=== PATIENT | female | born 1940 | race Caucasian/White ===

== ENCOUNTER → 2017-06-22 16:42 | Outpatient (CLI) | payer MEDICARE, OTHER ==
[2014-12-17 07:58] VITALS: BMI 27.8
[~2017-06-22 16:42] MED LIST: ASPIRIN EC81 MG; CENTRUM SILVER1 TA2 PO; DEXILANT60 MG PO; DILAUDID4 MG PO; DIOVAN160 MG PO; HCTZ25 MG PO; LEVOTHROID50 MCG PO; LOVAZA1 G PO; NEXIUM40 MG PO; VITAMIN B-625 MG
[2017-06-22 18:11] LABS: ANION GAP 16.9 mmol/L (8-16); CALCIUM 8.8 mg/dL (8.5-10.1); CARBON DIOXIDE 22.2 mmol/L (21.0-32.0); CREATININE - SERUM 1.5 mg/dL (0.6-1.3); POTASSIUM - SERUM 5.1 mmol/L (3.5-5.1)
== END | disposition home or self-care (01) ==
LOC: D.LABREF 16:42
PROVIDERS: Internal Medicine Cardiovascular Disease
DX: I10 Essential (primary) hypertension (principal)

== ENCOUNTER → 2017-06-23 09:53 | Outpatient (CLI) | payer MEDICARE, OTHER ==
[2014-12-17 07:58] VITALS: BMI 27.8
== END | disposition home or self-care (01) ==
LOC: D.US 09:53
DX: M79.604 Pain in right leg (principal); M79.605 Pain in left leg

== ENCOUNTER → 2017-11-02 09:36 | Outpatient (CLI) | payer MEDICARE, OTHER ==
[2014-12-17 07:58] VITALS: BMI 27.8
== END | disposition home or self-care (01) ==
LOC: D.US 09:36
DX: I12.9 Hypertensive chronic kidney disease with stage 1 through stage 4 chronic kidney disease, or unspecified chronic kidney disease (principal); N18.3 Chronic kidney disease, stage 3 (moderate); Z68.1 Body mass index [BMI] 19.9 or less, adult

== ENCOUNTER → 2018-06-07 16:42 | Outpatient (CLI) | payer MEDICARE, OTHER ==
[2014-12-17 07:58] VITALS: BMI 27.8
== END | disposition home or self-care (01) ==
LOC: D.CT 16:42
DX: M79.602 Pain in left arm (principal)

== ENCOUNTER → 2018-10-14 09:38 | Outpatient (CLI) | payer MEDICARE, OTHER ==
[2014-12-17 07:58] VITALS: BMI 27.8
[~2018-10-14 09:38] MED LIST changes: +LYRICA75 MG PO; +MAGNESIUM; +POTASSIUM99 M1; +ROBAXIN500 MG PO
== END | disposition home or self-care (01) ==
LOC: D.CT 09:38
PROVIDERS: ATTEND Internal Medicine Gastroenterology
DX: R10.11 Right upper quadrant pain (principal)

== ENCOUNTER → 2018-12-12 10:29 | Outpatient (CLI) | payer MEDICARE, OTHER ==
[2014-12-17 07:58] VITALS: BMI 27.8
[~2018-12-12 10:29] MED LIST changes: -LYRICA75 MG PO; -MAGNESIUM; -POTASSIUM99 M1; -ROBAXIN500 MG PO
== END | disposition home or self-care (01) ==
LOC: D.MRI 10:29
PROVIDERS: ATTEND Neurological Surgery
DX: M51.36 Other intervertebral disc degeneration, lumbar region (principal)

== ENCOUNTER 2018-12-25 18:40 | Emergency (ER) | payer MEDICARE, OTHER ==
[2018-12-25 18:46] VITALS: Ht 160 cm
[2018-12-25] MEDS ORDERED: MAGNESIUM (18:47)
[2018-12-25] MEDS ORDERED: POTASSIUM99 M1 (18:48)
[2018-12-25] MEDS ORDERED: LYRICA75 MG PO (19:57)
[2018-12-25] MEDS ORDERED: ROBAXIN500 MG PO (19:57)
[2018-12-25 20:32] LABS: BASOPHILS 0.2 % (0-2); EOSINOPHILS 1.5 % (0-7); HEMATOCRIT 29.7 % (36.0-48.0); IMMATURE GRANULOCYTES 0.2 % (0-5); LYMPHOCYTES 32.7 % (15-50); MCH 29.9 pg (26.0-34.0); MCHC 33.7 g/dL (31.0-37.0); MCV 88.9 fL (80.0-100.0); MEAN PLATELET VOLUME 9.2 fL (7.4-10.4); MONOCYTES 8.7 % (2-11); NEUTROPHILS 56.7 % (40-80); PLATELET COUNT 308 10x3/uL (130-400); RBC 3.34 10x6/uL (4.00-5.40); RDW 14.2 % (11.5-14.5); WBC 8.6 10x3/uL (4.8-10.8)
[2018-12-25 20:43] LABS: ALBUMIN 3.9 g/dL (3.4-5.0); ANION GAP 13.5 mmol/L (8-16); BILIRUBIN - TOTAL 0.32 mg/dL (0.2-1.3); CALCIUM 9.1 mg/dL (8.5-10.1); CARBON DIOXIDE 24.2 mmol/L (21.0-32.0); CREATININE - SERUM 1.9 mg/dL (0.6-1.3); MAGNESIUM - SERUM 2.4 mg/dL (1.8-2.4); POTASSIUM - SERUM 4.7 mmol/L (3.5-5.1)
[2018-12-25 21:29] VITALS: BP 132/71
== END 2018-12-25 21:29 | disposition home or self-care (01) ==
LOC: D.ER 18:40
PROVIDERS: Emergency Medicine
DX: M54.16 Radiculopathy, lumbar region (principal); I12.9 Hypertensive chronic kidney disease with stage 1 through stage 4 chronic kidney disease, or unspecified chronic kidney disease; N18.9 Chronic kidney disease, unspecified; E87.1 Hypo-osmolality and hyponatremia

== ENCOUNTER → 2019-01-30 15:15 | Outpatient (CLI) | payer MEDICARE, OTHER ==
[2018-12-25 18:46] VITALS: BMI 27.8
[~2019-01-30 15:15] MED LIST changes: +LYRICA75 MG PO; +MAGNESIUM; +POTASSIUM99 M1; +ROBAXIN500 MG PO
== END | disposition home or self-care (01) ==
LOC: D.US 15:15
PROVIDERS: ATTEND Nurse Practitioner Family
DX: R10.9 Unspecified abdominal pain (principal); I10 Essential (primary) hypertension; D64.9 Anemia, unspecified; N25.81 Secondary hyperparathyroidism of renal origin; N18.3 Chronic kidney disease, stage 3 (moderate); Z68.29 Body mass index [BMI] 29.0-29.9, adult

== ENCOUNTER → 2019-07-19 08:26 | Outpatient (CLI) | payer MEDICARE, OTHER ==
[2018-12-25 18:46] VITALS: BMI 27.8
== END | disposition home or self-care (01) ==
LOC: D.MRI 07-18 08:00 → D.OPS 07:00 → D.MRI 09:00
PROVIDERS: ATTEND Nurse Practitioner Family
DX: N18.3 Chronic kidney disease, stage 3 (moderate) (principal); R10.32 Left lower quadrant pain; G89.29 Other chronic pain

== ENCOUNTER 2019-09-21 05:11 | Day surgery (SDC) | payer MEDICARE, OTHER ==
[~2019-09-21] VITALS: Ht 154.9 cm; Wt 74.8 kg
[~2019-09-21 05:11] MED LIST changes: +VITAMIN B COMPLEX PO
[2019-09-21 06:14] LABS: BASOPHILS 0.3 % (0-2); EOSINOPHILS 2.1 % (0-7); HEMATOCRIT 33.9 % (36.0-48.0); HEMOGLOBIN 10.7 g/dL (12-16); IMMATURE GRANULOCYTES 0.3 % (0-5); LYMPHOCYTES 28.2 % (15-50); MCH 30.1 pg (26.0-34.0); MCHC 31.6 g/dL (31.0-37.0); MCV 95.2 fL (80.0-100.0); MEAN PLATELET VOLUME 9.6 fL (7.4-10.4); MONOCYTES 7.9 % (2-11); NEUTROPHILS 61.2 % (40-80); PLATELET COUNT 313 10x3/uL (130-400); RBC 3.56 10x6/uL (4.00-5.40); RDW 14.4 % (11.5-14.5); WBC 7.5 10x3/uL (4.8-10.8)
[2019-09-21 06:28] LABS: APTT 25.5 SECONDS (22.8-39.4); INR 0.92 (0.85-1.17); PROTIME 12.4 SECONDS (11.6-15.0)
[2019-09-21 06:43] VITALS: BP 179/82; Ht 154.9 cm; Wt 74.8 kg
--- NOTE | 2019-09-21 08:55 | NUR ---
0830 IV DC'D. CATHETER TIP INTACT. NO BLEEDING AT SITE AFTER HOLDING PRESSURE. BANDAID APPLIED. 0849 PT READY FOR DISCHARGE HOME VIA WC. PT UOICES UNDERSTANDING OF DISCHARGE INSTRUCTIONS.
--- NOTE | 2019-09-28 10:34 | OP ---
PATIENT NAME: JAMIE BRYANT MEDICAL RECORD: [id number] :42 LOCATION:ENE ADMISSION DATE: SURGEON: MESHA RIVERA MD DATE OF OPERATION: 09/21/2019 PREOPERATIVE DIAGNOSIS: Arthritis of the left hip. POSTOPERATIVE DIAGNOSIS: Arthritis of the left hip. PROCEDURE: Hip injection under fluoroscopy. SURGEON: Mesha Rivera MD ANESTHESIA: TIVA. INTRAOPERATIVE COMPLICATIONS: None. 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 OPERATIVE SUMMARY IN DETAIL: After obtaining the appropriate preoperative orthopedic surgery consent as well as anesthetic consultation, evaluation and clearance, the patient was brought to the operating room and placed on the operating table in a supine position. After adequate general laryngeal mask was administered, the patient's left hip was prepped and draped in routine sterile fashion. Fluoroscopy was brought in and under direct fluoroscopic visualization, an 18-gauge spinal needle was placed into the hip capsule. Small amount of Isovue was utilized to be sure that the needle was in the appropriate position. At this point, 6 mg of 0.25% Marcaine and 40 mg of Depo-Medrol were injected directly into the hip capsule. Having completed this, the needle was withdrawn. Bandage was applied. The patient was returned to outpatient in stable condition. TRANSINT:[id number] Voice Confirmation ID: [id number] DOCUMENT ID: [id number] MESHA RIVERA MD at 1034 CC: [id number] DICTATION DATE: 09/28/19810 PLASTIC SURGERY COORDINATOR: 09/28/19 0902 DEP [facility] 09/21/19 [facility] [address] [place] [address]
== END 2019-09-21 08:49 | disposition home or self-care (01) ==
LOC: D.OPS 05:11
PROVIDERS: Anesthesiology; ATTEND Orthopaedic Surgery
DX: M16.12 Unilateral primary osteoarthritis, left hip (principal); J44.9 Chronic obstructive pulmonary disease, unspecified; K21.9 Gastro-esophageal reflux disease without esophagitis; G35 Multiple sclerosis

== ENCOUNTER → 2019-10-03 14:46 | Outpatient (CLI) | payer MEDICARE, OTHER ==
[2019-09-21 06:43] VITALS: BMI 31.2
== END | disposition home or self-care (01) ==
LOC: D.LABREF 14:46
PROVIDERS: ATTEND Orthopaedic Surgery
DX: M16.12 Unilateral primary osteoarthritis, left hip (principal)

== ENCOUNTER 2019-10-04 16:06 | Inpatient (IN) | payer MEDICARE, OTHER ==
[~2019-10-04] VITALS: Ht 154.9 cm; Wt 72.6 kg
[2019-11-01 09:40] LABS: BASOPHILS 0.2 % (0-2); EOSINOPHILS 0.8 % (0-7); HEMATOCRIT 36.2 % (36.0-48.0); HEMOGLOBIN 11.7 g/dL (12-16); IMMATURE GRANULOCYTES 0.8 % (0-5); LYMPHOCYTES 31.5 % (15-50); MCH 30.5 pg (26.0-34.0); MCHC 32.3 g/dL (31.0-37.0); MCV 94.5 fL (80.0-100.0); MEAN PLATELET VOLUME 9.4 fL (7.4-10.4); MONOCYTES 6.4 % (2-11); NEUTROPHILS 60.3 % (40-80); PLATELET COUNT 345 10x3/uL (130-400); RBC 3.83 10x6/uL (4.00-5.40); RDW 14.8 % (11.5-14.5); WBC 11.9 10x3/uL (4.8-10.8)
[2019-11-01 09:49] LABS: ANION GAP 12.8 mmol/L (8-16); CALCIUM 9.2 mg/dL (8.5-10.1); CREATININE - SERUM 1.5 mg/dL (0.6-1.3); POTASSIUM - SERUM 3.8 mmol/L (3.5-5.1)
[2019-11-01 09:55] LABS: APTT 22.6 SECONDS (22.8-39.4); INR 0.88 (0.85-1.17); PROTIME 11.9 SECONDS (11.6-15.0)
[2019-11-01 10:19] LABS: BILIRUBIN NEGATIVE (NEGATIVE); GLUCOSE NEGATIVE (NEGATIVE); KETONE NEGATIVE (NEGATIVE); NITRITE NEGATIVE (NEGATIVE); UROBILINOGEN NORMAL (NORMAL)
[2019-11-06] VITALS (10 sets, daily range): BP systolic 87–146; BP diastolic 47–99; BMI 31.2; BMI 30.3
--- NOTE | 2019-11-06 10:25 | NUR ---
RECEIVED TO ROOM 1210 VIA BED FROM PACU. A/O X 3. NO C/O PAIN OR DISCOMFORT. SKIN IS INTACT WITHOUT REDNESS EXCEPT INCISION TO LEFT HIP WHICH HAS A DRY INTACT DRESSING IN PLACE. MIX PATENT WITH CLEAR YELLOW URINE, PATIENT HAD SPINAL. DENIES NEEDS. INSTRUCTED IN USE OF IS WITH RETURN DEMONSTRATION.
--- NOTE | 2019-11-06 12:32 | NUR ---
spoke with dr wang. pt had a spinal not an epidural. he states it is ok to give elizuis starting this evening.
--- NOTE | 2019-11-06 19:12 | NUR ---
PATIENT RESTING IN BED WITH NO S/S OF DISTRESS. AT BEDSIDE. PATIENT DENIES NEEDS AT THIS TIME. VSS. BED IN LOWEST POSITION AND CALL LIGHT WITHIN REACH. ENCOURAGED THE PATIENT TO CALL IF SHE HAS NEEDS. WILL CONTINUE TO MONITOR.
--- NOTE | 2019-11-06 19:19 | NUR ---
ATE MOST OF SUPPER. DENIES NEEDS. NO CHANGES NOTED.
--- NOTE | 2019-11-06 19:23 | NUR ---
ATE MOST OF SUPPER. DENIES NEEDS. NO CHANGES NOTED.
[2019-11-07 00:11] VITALS: BP 116/53
[2019-11-07 03:02] VITALS: BP 123/57
[2019-11-07 07:08] LABS: BASOPHILS 0.1 % (0-2); EOSINOPHILS 0.3 % (0-7); HEMATOCRIT 25.5 % (36.0-48.0); IMMATURE GRANULOCYTES 0.3 % (0-5); LYMPHOCYTES 16.4 % (15-50); MCH 29.6 pg (26.0-34.0); MCHC 31.4 g/dL (31.0-37.0); MCV 94.4 fL (80.0-100.0); MEAN PLATELET VOLUME 9.5 fL (7.4-10.4); MONOCYTES 7.3 % (2-11); NEUTROPHILS 75.6 % (40-80); WBC 11.2 10x3/uL (4.8-10.8)
[2019-11-07 07:18] LABS: ANION GAP 12.6 mmol/L (8-16); CARBON DIOXIDE 23.2 mmol/L (21.0-32.0); CREATININE - SERUM 1.6 mg/dL (0.6-1.3); PLATELET COUNT 222 10x3/uL (130-400); POTASSIUM - SERUM 4.8 mmol/L (3.5-5.1)
[2019-11-07 07:29] VITALS: BP 100/42
--- NOTE | 2019-11-07 07:45 | NUR ---
AWAKE AND ALERT. ORIENTED X3. MIX D/C WITH TIP INTACT WITHOUT DIFFICULTY. LUNGS ARE CLEAR BILATERALLY, NO COUGH NOTED. REPORTED USING IS INSTRUCTED. SKIN IS INTACT WITHOUT REDNESS EXCEPT INCISION TO LEFT HIP WHICH HAS A DRY INTACT DRESSING IN PLACE. IV TO LEFT WRIST IS PATENT WITHOUT REDNESS AT INSERTION SITE. DENIES NEEDS. BREAKFAST SERVED IN ROOM.
--- NOTE | 2019-11-07 10:00 | NUR ---
UP TO CHAIR AT BEDSIDE WITH PT. DID WELL.
[2019-11-07 11:00] VITALS: Ht 154.9 cm; Wt 72.6 kg
--- NOTE | 2019-11-07 12:45 | NUR ---
LUNCH SERVED IN ROOM. ATE ABOUT HALF OF MEAL. AMBULATED TO BR WITH RW MIN ASSIST. VOIDED WITHOUT DIFFICULTY. REPOSITIONED IN BED FOR COMFORT.
--- NOTE | 2019-11-07 13:20 | NUR ---
Rehab Note- Acute Inpatient Rehab prescreen order received. The patient is POD #1. Will follow at this time. Thank you for this referral! Kenya Granado RN Clinical Liaison, [facility] Rehab
--- NOTE | 2019-11-07 14:03 | NUR ---
C/O NAUSEA. GIVEN 4MG ZOFRAN PO FOR SAME. WILL MONITOR.
[2019-11-07 16:50] VITALS: BP 123/55
--- NOTE | 2019-11-07 18:30 | NUR ---
ATE ABOUT HALF OF SUPPER. UP TO BR WITH ONE PERSON MIN ASSIST. VOIDED CLEAR YELLOW URINE WITHOUT DIFFICULTY. DENIES NEEDS. NO CHANGES NOTED.
[2019-11-07 20:00] VITALS: BP 107/46
--- NOTE | 2019-11-07 21:10 | MORECARE ---
CASE MANAGEMENT DISCHARGE SUMMARY PATIENT: JAMIE BRYANT UNIT: [id number] ADM DATE: 11/06/19 AGE: 79 : 42 SEX: F ROOM/BED: D.1210 AUTHOR: FENG RICARDO PHYSICIAN: REFERRING PHYSICIAN: MESHA RIVERA MD DATE OF SERVICE: 11/07/19 Discharge Plan Patient Name: JAMIE BRYANT Facility: [facility]:[place] : 1940 Planned Disposition: Inpatient Rehab Anticipated Discharge Date: Discharge Date: Expected LOS: Initial Reviewer: [email or web address] Initial Review Date: 11/06/2019 Generated: 11/07/19 10:10 pm DCPIA - Discharge Planning Initial Assessment Updated by JIM: Marilin Pitt on 11/07/19 9:07 pm * Is the patient Alert and Oriented? Yes * How many steps to enter\exit or inside your home? * PCP ZAIN * Pharmacy [facility] * Preadmission Environment Home with Family * ADLs Independent * Other Equipment WALKER, BSC * List name and contact numbers for known caregivers / representatives who currently or will assist patient after discharge: MAKENZIE BYRANT - [facility] - [phone] * Verbal permission to speak to the caregivers and representatives has been obtained from the patient. Yes * Community resources currently utilized None * Additional services required to return to the preadmission environment? No * Can the patient safely return to the preadmission environment? Yes * Has this patient been hospitalized within the prior 30 days at any hospital? No Coverage Notice Reviewer: [id number] - Marilin Pitt Notice Issued Date-Time: 11/07/2019 21:02 Notice Type: Patient Choice Letter Notice Delivered To: Patient Relationship to Patient: Self Slot Shift Supervisor Name: Delivery Method: HAND - Hand Delivered Lauren Days: Prior Verbal Notification: Recipient Understood Notice: Yes Recipient Signature: Yes Med Rec Note Co-signed by Attending: Coverage Notice Comment: INPATIENT REHAB -[facility] Patient Name: JAMIE BRYANT Page [id number] at 2110 All edits/amendments must be made on the electronic document DICTATION DATE: 11/07/192109 MENDER HAND: GAVIN 11/07/192109 RPT#: [id number] DC DATE: STATUS: ADM IN [facility] [address] [place] [address] END OF REPORT
--- NOTE | 2019-11-07 21:17 | MORECARE ---
CASE MANAGEMENT DISCHARGE SUMMARY PATIENT: JAMIE BRYANT UNIT: [id number] ADM DATE: 11/06/19 AGE: 79 : 42 SEX: F ROOM/BED: D.1210 AUTHOR: HALEIGH,DOC PHYSICIAN: REFERRING PHYSICIAN: MESHA RIVERA MD DATE OF SERVICE: 11/07/19 Discharge Plan Patient Name: JAMIE BRYANT Facility: [facility]:[place] : 1940 Planned Disposition: Inpatient Rehab Anticipated Discharge Date: Discharge Date: Expected LOS: Initial Reviewer: [email or web address] Initial Review Date: 11/06/2019 Generated: 11/07/19 10:17 pm Comments DCP- Discharge Planning Updated by [email or web address]: Marilin Pitt on 11/07/19 8:[address] Patient Name: JAMIE BRYANT Admission Status: Elective Accout number: [id number] Admission Date: 11-06-2019 : 1940 Admission Diagnosis:UNILATERAL PRIMARY OSTEOARTHRITIS, LEFT HIP Attending: MESHA RIVERA Current LOS: 1 Anticipated DC Date: Planned Disposition: Inpatient Rehab Primary Insurance: MEDICARE A & B Discharge Planning Comments: CM met with patient to complete initial dc planning assessment. CM educated patient on the CM role and verbal consent given by patient to complete assessment. Patient lives at home with family. Patient is independent. At discharge patient would like to go to inpatient rehab at [facility] and feels this is a safe discharge. CM discussed availability of home health, rehab services, and medical equipment. Patient states that she would like [facility] @ discharge from Rehab. HUSSEIN signed. Patient asked about a grabber and if Medicare paid for it. CM contacted local DME and they stated that Medicare does not cover the grabber. Patient will have family to transport home. Patient denied known discharge needs at this time. CM will continue to follow and will assist as needed with dc plans/needs. Bus Operator: Marilin Pitt DCPIA - Discharge Planning Initial Assessment Updated by [email or web address]: Marilin Pitt on 11/07/19 9:07 pm * Is the patient Alert and Oriented? Yes * How many steps to enter\exit or inside your home? * PCP ZAIN * Pharmacy [facility] * Preadmission Environment Home with Family * ADLs Independent * Other Equipment WALKER, BSC * List name and contact numbers for known caregivers / representatives who currently or will assist patient after discharge: MAKENZIE BRYANT - [facility] - [phone] * Verbal permission to speak to the caregivers and representatives has been obtained from the patient. Yes * Community resources currently utilized None * Additional services required to return to the preadmission environment? No * Can the patient safely return to the preadmission environment? Yes * Has this patient been hospitalized within the prior 30 days at any hospital? No Coverage Notice Reviewer: [id number] Soniya Pitt Notice Issued Date-Time: 11/07/2019 21:02 Notice Type: Patient Choice Letter Notice Delivered To: Patient Relationship to Patient: Self Supervisor Vendor Quality Name: Delivery Method: HAND - Hand Delivered Lauren Days: Prior Verbal Notification: Recipient Understood Notice: Yes Recipient Signature: Yes Med Rec Note Co-signed by Attending: Coverage Notice Comment: INPATIENT REHAB -[facility] [place] DP export: 11/07/19 8:10 p Patient Name: JAMIE BRYANT Page [phone] at 2117 All edits/amendments must be made on the electronic document DICTATION DATE: 11/07/192116 SYSTEMS TECHNOLOGIST: GAVIN 11/07/192116 RPT#: [id number] DC DATE: STATUS: ADM IN [facility] [address] [place] [address] END OF REPORT
--- NOTE | 2019-11-07 21:24 | MORECARE ---
CASE MANAGEMENT DISCHARGE SUMMARY PATIENT: JAMIE BRYANT UNIT: [id number] ADM DATE: 11/06/19 AGE: 79 : 42 SEX: F ROOM/BED: D.1210 AUTHOR: HALEIGH,DOC PHYSICIAN: REFERRING PHYSICIAN: MESHA RIVERA MD DATE OF SERVICE: 11/07/19 Discharge Plan Patient Name: JAMIE BRYANT Facility: [facility]:[place] : 1940 Planned Disposition: Inpatient Rehab Anticipated Discharge Date: Discharge Date: Expected LOS: Initial Reviewer: [email or web address] Initial Review Date: 11/06/2019 Generated: 11/07/19 10:23 pm Comments DCP- Discharge Planning Updated by [email or web address]: Marilin Pitt on 11/07/19 8:[address] Patient Name: JAMIE BRYANT Admission Status: Elective Accout number: [id number] Admission Date: 11-06-2019 : 1940 Admission Diagnosis:UNILATERAL PRIMARY OSTEOARTHRITIS, LEFT HIP Attending: MESHA RIVERA Current LOS: 1 Anticipated DC Date: Planned Disposition: Inpatient Rehab Primary Insurance: MEDICARE A & B Discharge Planning Comments: CM met with patient to complete initial dc planning assessment. CM educated patient on the CM role and verbal consent given by patient to complete assessment. Patient lives at home with family. Patient is independent. At discharge patient would like to go to inpatient rehab at [facility] and feels this is a safe discharge. CM discussed availability of home health, rehab services, and medical equipment. Patient states that she would like [facility] @ discharge from Rehab. HUSSEIN signed. Patient asked about a grabber and if Medicare paid for it. CM contacted local DME and they stated that Medicare does not cover the grabber. Patient will have family to transport home. Patient denied known discharge needs at this time. CM will continue to follow and will assist as needed with dc plans/needs. Critical Care Transport Nurse: Marilin Pitt DCPIA - Discharge Planning Initial Assessment Updated by [id number]: Marilin Pitt on 11/07/19 9:07 pm * Is the patient Alert and Oriented? Yes * How many steps to enter\exit or inside your home? * PCP ZAIN * Pharmacy [facility] * Preadmission Environment Home with Family * ADLs Independent * Other Equipment WALKER, BSC * List name and contact numbers for known caregivers / representatives who currently or will assist patient after discharge: MAKENZIE BRYANT - [facility] - [phone] * Verbal permission to speak to the caregivers and representatives has been obtained from the patient. Yes * Community resources currently utilized None * Additional services required to return to the preadmission environment? No * Can the patient safely return to the preadmission environment? Yes * Has this patient been hospitalized within the prior 30 days at any hospital? No Coverage Notice Reviewer: [id number] Soniya Pitt Notice Issued Date-Time: 11/07/2019 21:02 Notice Type: Patient Choice Letter Notice Delivered To: Patient Relationship to Patient: Self Private Mortgage Banker Safe Name: Delivery Method: HAND - Hand Delivered Lauren Days: Prior Verbal Notification: Recipient Understood Notice: Yes Recipient Signature: Yes Med Rec Note Co-signed by Attending: Coverage Notice Comment: INPATIENT REHAB -[facility] [place] DP export: 11/07/19 8:17 p Patient Name: JAMIE BRYANT Page [phone] at 2124 All edits/amendments must be made on the electronic document DICTATION DATE: 11/07/192123 MOLD BURNER: GAVIN 11/07/192123 RPT#: [id number] DC DATE: STATUS: ADM IN [facility] [address] [place] [address] END OF REPORT
[2019-11-08 05:27] VITALS: BP 102/51
--- NOTE | 2019-11-08 05:28 | NUR ---
AWAKE STATES NOT FEELING WELL, HAVING SOME DRAINAGE THAS MAKING SICK AT STOMACH AGAIN THIS MORNING, DENIES PAIN INSTRUCTED MAY NEED TO TAKE PAIN MEDICATION ABOUT BREAKFAST BEFORE PT COMES
[2019-11-08 08:02] VITALS: BP 114/54
[2019-11-08 08:13] LABS: BASOPHILS 0.1 % (0-2); EOSINOPHILS 0.6 % (0-7); HEMATOCRIT 25.9 % (36.0-48.0); HEMOGLOBIN 8.2 g/dL (12-16); IMMATURE GRANULOCYTES 0.2 % (0-5); LYMPHOCYTES 13.4 % (15-50); MCH 29.5 pg (26.0-34.0); MCHC 31.7 g/dL (31.0-37.0); MCV 93.2 fL (80.0-100.0); MEAN PLATELET VOLUME 9.4 fL (7.4-10.4); MONOCYTES 7.3 % (2-11); NEUTROPHILS 78.4 % (40-80); PLATELET COUNT 217 10x3/uL (130-400); RBC 2.78 10x6/uL (4.00-5.40); RDW 14.9 % (11.5-14.5); WBC 12.3 10x3/uL (4.8-10.8)
[2019-11-08 08:21] LABS: ANION GAP 12.3 mmol/L (8-16); CALCIUM 8.3 mg/dL (8.5-10.1); CARBON DIOXIDE 23.2 mmol/L (21.0-32.0); CREATININE - SERUM 1.6 mg/dL (0.6-1.3); POTASSIUM - SERUM 4.5 mmol/L (3.5-5.1)
--- NOTE | 2019-11-08 09:14 | OP ---
PATIENT NAME: JAMIE BRYANT MEDICAL RECORD: [id number] :44 LOCATION:D.M3 D.1210 ADMISSION DATE:11/06/19 SURGEON: MESHA RIVERA MD DATE OF OPERATION: 11/06/2019 PREOPERATIVE DIAGNOSIS: Osteoarthritis of the left hip. POSTOPERATIVE DIAGNOSIS: Osteoarthritis of the left hip. PROCEDURE: Left total hip arthroplasty. SURGEON: Mesha Rivera MD CAPTAIN WAITER/WAITRESS: OLEG Rojas SECOND SKIVER BLOCKERS: SALMA Bello ESTIMATED BLOOD LOSS: 300 cc. INTRAOPERATIVE COMPLICATIONS: None. SUMMARY OF PATHOLOGIC FINDINGS: The patient did have severe osteophytes as well as osteoarthritis of the left hip. IMPLANTS USED: Tritanium 2 cluster hole acetabular shell size 52 alpha code E, 0-degree polyethylene insert, 36 alpha code E, 132 degree neck angle Accolade II TMZF coated stem and a Biolox femoral head neutral. OPERATIVE SUMMARY IN DETAIL: After obtaining the appropriate preoperative orthopedic surgery consent as well as anesthetic consultation, evaluation and clearance, the patient was brought to the operating room and placed on the operating table in the supine position. After general laryngeal mask airway was administered, the patient was placed in a right lateral decubitus position. All pressure points were well padded to include down leg peroneal pad as well as axillary roll. The patient was held firmly to the operating table using the vacuum pack suction system. The patient's left lower extremity and hip were then prepped and draped in routine sterile fashion. Curvilinear incision was made over the greater trochanter. The IT band was split in line with fibers of the IT band to reveal gluteus medius minimus attachment of the greater trochanter. These were reflected anteriorly. The hip capsule was split in a T-type fashion and saved for later reapproximation. Hip was dislocated. Femoral neck cut was made using the femoral neck cutting guide. At this point, approach was then made to the acetabulum. Serial and sequential labrectomy was followed by reaming for a size 52 Tritanium 2 cup. This was tamped into place with excellent capture. Polyethylene was then snapped into place. Attention was then returned to the proximal femur. Serial and sequential reaming and broaching were done for a size #4 Accolade II stem. Trial was undertaken. It was felt that the most appropriate was a neutral that is +0 femoral head. This was tamped in place with Fay taper, reduced, taken through range of motion and found to be stable in all planes. After copious irrigation, the wound was filled with a gram of vancomycin and a gram of tobramycin. Hip capsule was closed using #2 Ethibond followed by #1 Vicryl reapproximation of gluteus medius minimus back to the greater trochanter in a transosseous fashion. The IT band was closed with #2 Ethibond followed by #1 Vicryl, 2-0 Vicryl, all done by Oneal Hogue, and Alex Madrid, OLEG and SALMA respectively. Sterile dressings were OPERATIVE REPORT [id number] JAMIE BRYANT applied. The patient was awakened and taken to the recovery room in stable condition. All final needle and sponge counts were correct. TRANSINT:[id number] Voice Confirmation ID: [id number] DOCUMENT ID: [id number] MIGUEL RASCON, MESHA ARMSTORNG at 0914 CC: [id number] DICTATION DATE: 11/07/19 1026 PRINT BUYER: 11/07/19 2147 ADM IN [facility] [address] [place] [address]
--- NOTE | 2019-11-08 10:01 | NUR ---
PT ALERT X 4. BREATH SOUNDS CLEAR BILAT. IV TO LEFT FOREARM, SALINE LOCKED. DRESSING TO LEFT HIP CDI. PT REPORTING PAIN OF 6/10, MEDICATED PER ORDERS, WILL CONTINUE TO MONITOR. FAMILY AT BEDSIDE. BED LOW, CALL LIGHT IN REACH. NO OTHER NEEDS AT THIS TIME.
[2019-11-08] MEDS ORDERED: COLACE100 MG PO (14:56)
[2019-11-08] MEDS ORDERED: ELIQUIS2.5 MG PO (14:56)
[2019-11-08] MEDS ORDERED: TORADOL IV (14:57)
[2019-11-08] MEDS ORDERED: PERCOCET 10-321 EAC1 PO (14:57)
--- NOTE | 2019-11-08 17:39 | NUR ---
OT NOTE: PT COMPLETED LE DSG TASKS WITH MOD A. PT COMPLETED EOB SITTING WITH CGA. PT COMPLETED SIT TO SUPINE WITH MIN A. 3-405 THANK YOU,PALMA HEREDIA
--- NOTE | 2019-11-08 18:37 | NUR ---
DISCHARGE PAPERWORK SIGNED, ALL QUESTIONS ANSWERED. IV TO LEFT FOREARM DC'D. TIP INTACT. REPORT CALLED TO GEOVANNY AT INPATIENT REHAB. PT TRANSFERRED TO REHAB VIA WHEELCHAIR.
--- NOTE | 2019-11-09 14:17 | MORECARE ---
CASE MANAGEMENT DISCHARGE SUMMARY PATIENT: JAMIE BRYANT UNIT: [id number] ADM DATE: 11/06/19 AGE: 79 : 42 SEX: F ROOM/BED: D.1210 AUTHOR: HALEIGH,DOC PHYSICIAN: REFERRING PHYSICIAN: MESHA RIVERA MD DATE OF SERVICE: 11/09/19 Discharge Plan Patient Name: JAMIE BRYANT Facility: [facility]:[place] : 1940 Planned Disposition: Inpatient Rehab Anticipated Discharge Date: Discharge Date: 11/08/2019 Expected LOS: Initial Reviewer: [id number] Initial Review Date: 11/06/2019 Generated: 11/09/19 3:16 pm Comments DCP- Discharge Planning Updated by [email or web address]: Marilin Pitt on 11/07/19 8:[address] Patient Name: JAMIE BRYANT Admission Status: Elective Accout number: [id number] Admission Date: 11-06-2019 : 1940 Admission Diagnosis:UNILATERAL PRIMARY OSTEOARTHRITIS, LEFT HIP Attending: MESHA RIVERA Current LOS: 1 Anticipated DC Date: Planned Disposition: Inpatient Rehab Primary Insurance: MEDICARE A & B Discharge Planning Comments: CM met with patient to complete initial dc planning assessment. CM educated patient on the CM role and verbal consent given by patient to complete assessment. Patient lives at home with family. Patient is independent. At discharge patient would like to go to inpatient rehab at [facility] and feels this is a safe discharge. CM discussed availability of home health, rehab services, and medical equipment. Patient states that she would like [facility] @ discharge from Rehab. HUSSEIN signed. Patient asked about a grabber and if Medicare paid for it. CM contacted local DME and they stated that Medicare does not cover the grabber. Patient will have family to transport home. Patient denied known discharge needs at this time. CM will continue to follow and will assist as needed with dc plans/needs. Post Commander: Marilin Pitt DCPIA - Discharge Planning Initial Assessment Updated by [id number]: Marilin Pitt on 11/07/19 9:07 pm * Is the patient Alert and Oriented? Yes * How many steps to enter\exit or inside your home? * PCP ZAIN * Pharmacy [facility] * Preadmission Environment Home with Family * ADLs Independent * Other Equipment WALKER, BSC * List name and contact numbers for known caregivers / representatives who currently or will assist patient after discharge: MAKENZIE BRYANT - [facility] - [phone] * Verbal permission to speak to the caregivers and representatives has been obtained from the patient. Yes * Community resources currently utilized None * Additional services required to return to the preadmission environment? No * Can the patient safely return to the preadmission environment? Yes * Has this patient been hospitalized within the prior 30 days at any hospital? No Coverage Notice Reviewer: [id number] - Marilin Pitt Notice Issued Date-Time: 11/07/2019 21:02 Notice Type: Patient Choice Letter Notice Delivered To: Patient Relationship to Patient: Self Construction Grip Name: Delivery Method: HAND - Hand Delivered Lauren Days: Prior Verbal Notification: Recipient Understood Notice: Yes Recipient Signature: Yes Med Rec Note Co-signed by Attending: Coverage Notice Comment: INPATIENT REHAB -[facility] DP export: 11/07/19 8:24 p Patient Name: JAMIE BRYANT Page [phone] at 1417 All edits/amendments must be made on the electronic document DICTATION DATE: 11/09/191415 TEST KITCHEN HOME ECONOMIST: GAVIN 11/09/191415 RPT#: [id number] DC DATE:11/08/19 STATUS: DIS IN [facility] [address] [place] [address] END OF REPORT
== END 2019-11-08 18:39 | DRG 470 ==
LOC: D.SDCHOLD 11-01 10:00 → D.M3 11-06 06:49 → D.SDCHOLD 11-06 06:49 → D.M3 11-06 11:17
PROVIDERS: Family Medicine; ADMIT Orthopaedic Surgery; ATTEND Orthopaedic Surgery
PROC: 0SRB0J9 Replacement of Left Hip Joint with Synthetic Substitute, Cemented, Open Approach (ICD-10-PCS; principal; 2019-11-06 09:15)
DX: M16.12 Unilateral primary osteoarthritis, left hip (principal); D62 Acute posthemorrhagic anemia; E87.1 Hypo-osmolality and hyponatremia; E03.9 Hypothyroidism, unspecified; K21.9 Gastro-esophageal reflux disease without esophagitis; L72.3 Sebaceous cyst; R25.2 Cramp and spasm; I12.9 Hypertensive chronic kidney disease with stage 1 through stage 4 chronic kidney disease, or unspecified chronic kidney disease; N18.9 Chronic kidney disease, unspecified

== ENCOUNTER → 2019-10-06 08:12 | Outpatient (CLI) | payer MEDICARE, OTHER ==
[2019-09-21 06:43] VITALS: BMI 31.2
[2019-10-06 09:13] LABS: CREATININE - SERUM 1.7 mg/dL (0.6-1.3)
== END | disposition home or self-care (01) ==
LOC: D.LAB 08:12 → D.MRI 09:00
PROVIDERS: ATTEND Neurological Surgery
DX: M51.36 Other intervertebral disc degeneration, lumbar region (principal); M79.609 Pain in unspecified limb; M48.062 Spinal stenosis, lumbar region with neurogenic claudication; M47.816 Spondylosis without myelopathy or radiculopathy, lumbar region

== ENCOUNTER 2019-11-08 18:45 | Inpatient (IN) | payer MEDICARE, OTHER ==
[~2019-11-08] VITALS: Ht 154.9 cm; Wt 72.6 kg
[~2019-11-08 18:45] MED LIST changes: +COLACE100 MG PO; +ELIQUIS2.5 MG PO; +PERCOCET 10-321 EAC1 PO; +TORADOL IV
--- NOTE | 2019-11-08 18:50 | NUR ---
BEDSIDE REPORT COMPLETE. PT SITTING UP IN BED. ALERT AND ORIENTED X4. DENIES ANY NEEDS OR PAIN. ORIENTED TO ROOM, BATHROOM, AND REMOTE/CALL LIGHT FUNCTIONS. PT IS ON ROOM AIR, NO IV SITE NOTED. LEFT HIP DRESSING INTACT. CALL LIGHT WITHIN REACH. FALL PRECAUTIONS IN PLACE. CPOC
[2019-11-08 20:34] VITALS: BP 122/55; BMI 30.3
[2019-11-08 20:59] VITALS: BP 122/55
--- NOTE | 2019-11-08 23:32 | NUR ---
PT LYING IN BED ON RIGHT SIDE EYES CLOSED RESTING QUIETLY. RR EVEN AND UNLABORED. CALL LIGHT WITHIN REACH. FALL PRECAUTIONS IN PLACE. CPOC
--- NOTE | 2019-11-09 02:15 | NUR ---
PT LYING IN BED SUPINE EYES CLOSED RESTING QUIETLY. RR EVEN AND UNLABORED. CALL LIGHT WITHIN REACH. FALL PRECAUTIONS IN PLACE. CPOC
--- NOTE | 2019-11-09 06:13 | NUR ---
PT LYING IN BED AWAKE AND ALERT. OFFERED TOILETING PT UP TOILETING WITH SBA USING WALKER. CPOC
[2019-11-09 08:00] VITALS: BP 128/50
[2019-11-09 08:46] LABS: BASOPHILS 0.1 % (0-2); EOSINOPHILS 1.1 % (0-7); HEMATOCRIT 26.9 % (36.0-48.0); HEMOGLOBIN 8.5 g/dL (12-16); IMMATURE GRANULOCYTES 0.4 % (0-5); LYMPHOCYTES 13.9 % (15-50); MCH 29.7 pg (26.0-34.0); MCHC 31.6 g/dL (31.0-37.0); MCV 94.1 fL (80.0-100.0); MEAN PLATELET VOLUME 9.3 fL (7.4-10.4); MONOCYTES 7.1 % (2-11); NEUTROPHILS 77.4 % (40-80); PLATELET COUNT 203 10x3/uL (130-400); RBC 2.86 10x6/uL (4.00-5.40); RDW 14.7 % (11.5-14.5); WBC 12.5 10x3/uL (4.8-10.8)
[2019-11-09 08:53] LABS: ANION GAP 11.1 mmol/L (8-16); CALCIUM 8.9 mg/dL (8.5-10.1); CARBON DIOXIDE 24.1 mmol/L (21.0-32.0); CREATININE - SERUM 1.6 mg/dL (0.6-1.3); POTASSIUM - SERUM 4.2 mmol/L (3.5-5.1)
--- NOTE | 2019-11-09 11:00 | NUR ---
PT C/O NAUSEA, ZOFRAN PO GIVEN PER ORDERS. UP IN WC FOR THERAPY IN GYM
[2019-11-09 14:18] VITALS: Ht 154.9 cm; Wt 72.6 kg
--- NOTE | 2019-11-09 14:30 | NUR ---
PATIENT LYING IN BED RESTING. ALERT AND ORIENTED AT THIS TIME. DENIES NEEDS. NO S/S OF DISTRESS. CALL LIGHT IN REACH. ZEFERINO
--- NOTE | 2019-11-09 16:50 | NUR ---
PT LYING IN BED VISITING WITH HER DAUGHTER. DENIES NEEDS AT THIS TIME. NO S/S OF DISTRESS. CALL LIGHT IN REACH. ZEFERINO
--- NOTE | 2019-11-09 18:22 | NUR ---
PT. C/O DRESSING TO LEFT HIP BLEEDING. UPON ASSESSMENT, THE SURGICAL DRESSING WAS SATURATED AND BLEEDING ONTO HER CLOTHING. MYSELF AND YENIFER VILLANUEVA REMOVED THE DRESSING AND REDRESSED. INCISION WAS NOT RED OR INFLAMED. THERE WERE TWO SPOTS OF CLOTTED AREA WHERE BLEEDING HAD BEEN. INCISION NOT ACTIVELY BLEEDING. INCISION DRESSED WITH BULKY PRESSURE BANDAGE. WILL CONTINUE TO MONITOR PT. KDAUBERRN
--- NOTE | 2019-11-09 18:50 | NUR ---
BEDSIDE REPORT COMPLETE. PT LYING IN BED WATCHING TV. ALERT AND ORIENTED X4. DENIES ANY NEEDS OR PAIN. NO SIGNS OF ACUTE DISTRESS NOTED. LEFT HIP DRESSING INTACT NO DRAINAGE NOTED. CALL LIGHT WITHIN REACH. FALL PRECAUTIONS IN PLACE. CPOC
[2019-11-09 21:38] VITALS: BP 129/56
--- NOTE | 2019-11-10 01:41 | NUR ---
PT LYING IN BED EYES CLOSED RESTING QUIETLY. RR EVEN AND UNLABORED. CALL LIGHT WITHIN REACH. FALL PRECAUTIONS IN PLACE. CPOC
--- NOTE | 2019-11-10 05:01 | NUR ---
PT LYING IN BED SUPINE EYES CLOSED RESTING QUIETLY. RR EVEN AND UNLABORED. CALL LIGHT WITHIN REACH. FALL PRECAUTIONS IN PLACE. CPOC
[2019-11-10 08:00] VITALS: BP 131/46
--- NOTE | 2019-11-10 08:00 | NUR ---
UP WITH THERAPY, DENIES ANY NEEDS AT THIS TIME.
--- NOTE | 2019-11-10 10:07 | NUR ---
AWAKE AND ALERT, ASSESSMENT COMPLETE, DENIES ANY NEEDS AT THIS TIME, C/L AND FLUIDS IN REACH.
--- NOTE | 2019-11-10 11:47 | NUR ---
PATIENT ADMITTED TO REHAB FROM ACUTE FLOOR . DR. PITTMAN IS PATIENT PCP. DME AT HOME IS A WALKER AND A BEDSIDE COMMODE. [facility] HAS BEEN CHOSEN FOR HOME THERAPY. WILL CONTINUE TO FOLLOW WITH PATIENT.
--- NOTE | 2019-11-10 16:10 | NUR ---
AWAKE AND ALERT IN BED WATCHING TV, DENIES ANY NEEDS AT THIS TIME, C/L AND FLUIDS IN REACH.
--- NOTE | 2019-11-10 18:52 | NUR ---
BEDSIDE REPORT COMPLETE. PT LYING IN BED SUPINE AWAKE. ALERT AND ORIENTED X4. DENIES ANY NEEDS OR PAIN. NO SIGNS OF ACUTE DISTRESS NOTED. LEFT HIP DRESSING INTACT. CALL LIGHT AND WATER WITHIN REACH. FALL PRECAUTIONS IN PLACE. CPOC
[2019-11-10 21:41] VITALS: BP 97/45
--- NOTE | 2019-11-11 02:34 | NUR ---
PT LYING IN BED SUPINE EYES CLOSED RESTING QUIETLY. RR EVEN AND UNLABORED. CALL LIGHT AND WATER WITHIN REACH. FALL PRECAUTIONS IN PLACE. CPOC
--- NOTE | 2019-11-11 05:33 | NUR ---
PT LYING IN BED AWAKE. DENIES ANY NEEDS OR PAIN. NO SIGNS OF ACUTE DISTRESS NOTED. CALL LIGHT AND WATER WITHIN REACH. FALL PRECAUTIONS IN PLACE. CPOC
[2019-11-11 07:16] LABS: BASOPHILS 0.1 % (0-2); EOSINOPHILS 1.7 % (0-7); HEMATOCRIT 23.3 % (36.0-48.0); IMMATURE GRANULOCYTES 0.3 % (0-5); LYMPHOCYTES 20.7 % (15-50); MCH 29.8 pg (26.0-34.0); MCHC 31.8 g/dL (31.0-37.0); MEAN PLATELET VOLUME 8.7 fL (7.4-10.4); MONOCYTES 7.1 % (2-11); NEUTROPHILS 70.1 % (40-80); PLATELET COUNT 216 10x3/uL (130-400); RBC 2.48 10x6/uL (4.00-5.40); RDW 14.7 % (11.5-14.5)
[2019-11-11 07:31] LABS: HEMOGLOBIN 7.4 g/dL (12-16)
[2019-11-11 07:38] LABS: ANION GAP 11.4 mmol/L (8-16); CALCIUM 8.6 mg/dL (8.5-10.1); CARBON DIOXIDE 24.9 mmol/L (21.0-32.0); CREATININE - SERUM 1.7 mg/dL (0.6-1.3); POTASSIUM - SERUM 4.3 mmol/L (3.5-5.1)
[2019-11-11 08:00] VITALS: BP 145/61
--- NOTE | 2019-11-11 19:37 | NUR ---
PT ASLEEP AROUSES EASILY TO VOICE NO IMMEDIATE NEEDS NOTED FLUIDS/CALL LIGHT WITHIN REACH
--- NOTE | 2019-11-11 23:36 | NUR ---
PT 2ND UNIT OF BLOOD STARTED AT 2155 AT 125ML/HR NO ISSUES NOTED, PICC PATENT BIO DISC IN USE DRSG ADHERED TO SKIN
[2019-11-12 00:48] VITALS: BP 120/56
[2019-11-12 08:00] VITALS: BP 168/74
--- NOTE | 2019-11-12 18:55 | NUR ---
RECEIVED PT LYING IN BED SUPINE AWAKE. ALERT AND ORIENTED X4. RR EVEN AND UNLABORED. WOUND VAC TO LEFT HIP WORKING PROPERLY NO LEAKS DETECTED AND DRESSING INTACT. DENIES ANY NEEDS. C/O MILD LEFT HIP DISCOMFORT. REQUESTED PAIN MEDICATION WITH ZOFRAN WITH HS MEDS. CALL LIGHT AND WATER WITHIN REACH. FALL PRECAUTIONS IN PLACE. CPOC
[2019-11-12 20:49] VITALS: BP 147/70
--- NOTE | 2019-11-13 00:08 | NUR ---
PT LYING IN BED EYES CLOSED RESTING COMFORTABLY. RR EVEN AND UNLABORED. CALL LIGHT WITHIN REACH. FALL PRECAUTIONS IN PLACE. CPOC
--- NOTE | 2019-11-13 03:16 | NUR ---
PT LYING IN BED EYES CLOSED RESTING. RR EVEN AND UNLABORED. CALL LIGHT WITHIN REACH. FALL PRECAUTIONS IN PLACE. CPOC
[2019-11-13 06:53] LABS: BASOPHILS 0.1 % (0-2); IMMATURE GRANULOCYTES 0.4 % (0-5); MCH 30.2 pg (26.0-34.0); MCHC 32.7 g/dL (31.0-37.0); MCV 92.4 fL (80.0-100.0); MEAN PLATELET VOLUME 9.1 fL (7.4-10.4); MONOCYTES 7.9 % (2-11); NEUTROPHILS 65.6 % (40-80); PLATELET COUNT 248 10x3/uL (130-400); RDW 14.9 % (11.5-14.5)
[2019-11-13 06:55] LABS: HEMATOCRIT 32.7 % (36.0-48.0); HEMOGLOBIN 10.7 g/dL (12-16); RBC 3.54 10x6/uL (4.00-5.40)
[2019-11-13 07:08] LABS: ANION GAP 12.1 mmol/L (8-16); C-REACTIVE PROTEIN 16.8 mg/dL (0.0-0.9); CALCIUM 9.3 mg/dL (8.5-10.1); CARBON DIOXIDE 27.8 mmol/L (21.0-32.0); CREATININE - SERUM 1.4 mg/dL (0.6-1.3); POTASSIUM - SERUM 3.9 mmol/L (3.5-5.1)
[2019-11-13 08:00] VITALS: BP 138/77
--- NOTE | 2019-11-13 08:01 | NUR ---
SITTING UP IN BED EATING BREAKFAST, DENIES ANY NEEDS AT THIS TIME, C/L AND FLUIDS IN REACH.
[2019-11-13 08:30] LABS: ERYTHROCYTE SEDIMENTATION RATE 67 mm/hr (0-30)
--- NOTE | 2019-11-13 10:30 | NUR ---
ASSESSMENT COMPLETE, C/L AND FLUIDS IN REACH.
--- NOTE | 2019-11-13 11:58 | NUR ---
RESTING IN BED WATCHING TV, DENIES ANY NEEDS AT THIS TIME, C/L AND FLUIDS IN REACH.
--- NOTE | 2019-11-13 15:56 | NUR ---
AWAKE AND ALERT RESTING IN BED VISITING WITH , DENIES ANY NEEDS AT THIS TIME, C/L AND FLUIDS IN REACH.
--- NOTE | 2019-11-13 19:02 | NUR ---
RECEIVED PT LYING IN BED SUPINE AWAKE. ALERT AND ORIENTED X4. LEFT HIP WOUND VAC INTACT NO SEALS DETECTED. DENIES ANY NEEDS OR PAIN. CALL LIGHT AND WATER WITHIN REACH. FALL PRECAUTIONS IN PLACE. CPOC
[2019-11-13 21:38] VITALS: BP 163/70
--- NOTE | 2019-11-14 02:30 | NUR ---
ASSISTED PT TO RESTROOM AND BACK TO BED WITH SBA. DENIES ANY NEEDS OR PAIN. NO SIGNS OF ACUTE DISTRESS NOTED. CALL LIGHT AND WATER WITHIN REACH. FALL PRECAUTIONS IN PLACE. CPOC
--- NOTE | 2019-11-14 07:45 | NUR ---
AWAKE AND ALERT ASSESSMENT COMPLETE, C/L AND FLUIDS IN REACH.
--- NOTE | 2019-11-14 07:49 | NUR ---
SITTING UP IN BED EATING BREAKFAST, DENIES ANY NEEDS AT THIS TIME, C/L AND FLUIDS IN REACH.
[2019-11-14 08:03] VITALS: BP 126/53
--- NOTE | 2019-11-14 08:54 | RHP ---
PATIENT: JAMIE BRYANT MEDICAL RECORD: [id number] ACCOUNT: [id number] LOCATION:[id number] : 42 ADMISSION DATE: 11/08/19 REHABILITATION HISTORY AND PHYSICAL EXAMINATION POST ADMISSION PHYSICIAN EXAMINATION ADMITTING DIAGNOSIS: Left total knee replacement. HISTORY OF PRESENT ILLNESS: The patient is a 79-year-old female patient who was admitted for a left total knee secondary to osteoarthritis and degenerative joint disease that due to interventions that had not resolved her pain in her hip with weightbearing. The patient had acute blood loss anemia after surgery, leukocytosis, acute pain in her left hip and knee and some nausea after surgery. She has been receiving PT during her acute hospital stay and is progressing slowly. She has been monitored closely for acute blood loss anemia. Monitoring her CBC closely and watch for any signs of acute bleeding with leukocytosis. She definitely needs pain control, monitor I's and O's, administer anticoagulation therapy. She is on electrolyte protocol. She has got left hip precautions, proximal muscle weakness, balance deficits, decreased activity tolerance, impaired mobility, decreased range of motion, decreased strength, limited safety awareness, medical complexity. She is risk for falls. She needs cues for equipment. She has got low endurance, got inability to care for herself. These are all reasons for her not being discharged home. She lives at home with her , was independent with ADLs and mobility prior to this. She is currently set up for max assist for ADLs, mod to max assist for mobility with use of rolling walker. She plans to be able to return home at her prior level of functioning after her stay here in the inpatient unit. COMORBIDITIES: Include weakness, acute blood loss anemia, left hip degenerative joint disease, total hip replacement on 11/05. She has got hypothyroidism, arthritis, spinal stenosis, anxiety, chronic diffuse interstitial lung disease. PAST MEDICAL HISTORY: Significant for allergies, she has got a history of thyroid nodule, hypertension, pneumonia, colon cancer, acid reflux, constipation, arthritis, hip pain, tobacco use, chronic diffuse interstitial lung disease and COPD. PAST SURGICAL HISTORY: Includes appendectomy, tonsillectomy, adenoidectomy, hysterectomy, colon resection. She has had a breast gland excision, ventral hernia repair, shoulder scope and low back surgery. ALLERGIES: CODEINE. CURRENT MEDICATIONS: Include hydrochlorothiazide 25 mg daily, Protonix 40 mg daily, she is on Synthroid 50 mcg daily, Colace 100 mg b.i.d., Eliquis 2.5 mg b.i.d., MiraLax 17 grams in 8 ounces of water daily, Tylenol 650 every 4 hours p.r.n., Toradol 10 mg every 6 hours p.r.n. and Percocet 10/325 one tab every 4 to 6 hours as needed for severe pain. HABITS: No current alcohol or tobacco use. FAMILY HISTORY: Noncontributory. SOCIAL HISTORY: The patient hopes to return back home and get back to her prior level of functioning. HISTORY AND PHYSICAL [id number] JAMIE BRYANT REVIEW OF SYSTEMS: GENERAL: Does complain of weakness and fatigue. HEENT: Denies cold, cough, or congestion. CARDIOVASCULAR: Denies any chest pain. PHYSICAL EXAMINATION: VITAL SIGNS: Stable, afebrile. GENERAL: A well-developed female, in no distress upon exam. HEENT: Normocephalic and atraumatic. Mucosa moist. NECK: Supple. No lymphadenopathy. LUNGS: Clear in upper baires, although she does have decreased breath sounds. CARDIOVASCULAR: Regular rate and rhythm. She does have a holosystolic murmur. ABDOMEN: Soft, benign, and nondistended. Positive bowel sounds times 4. EXTREMITIES: No clubbing, cyanosis. She does have a normal postop area to her hip. NEUROLOGIC: She is mainly intact. ASSESSMENT: This is a 79-year-old female patient admitted to rehab with a working diagnosis of status post left total hip replacement. The patient has potential to make improvement. We instituted the following multidisciplinary therapies including, but not limited to physical, occupational, respiratory, speech, nutritional services, prosthetics and orthotics. Given her complex medical condition and risks for more complications, rehabilitation services cannot be provided at a low level of care such as longterm facility. PLAN: 1. Admit to [facility] for inpatient therapy to include the following disciplines; A. Physical therapy to improve gait, all transfer skills and bed mobility to a modified independent level. B. Occupational therapy to improve activities of daily living. C. Case management to assist with discharge planning and placement options. D. Nutrition to assist with nutritional needs. E. Rehabilitation nursing to assist in monitoring the patient's underlying medical conditions and to assist with any type of bowel or bladder management. 2. The patient's current medication and medical care will be continued. 3. The patient will be placed on standard fall precautions. 4. Continue on Eliquis to watch for any signs of DVT and prevent this. 5. I am going to go ahead and see her again in the morning and continue on appropriate meds. TRANSINT:[id number] Voice Confirmation ID: [id number] DOCUMENT ID: [id number] 11/13/2019 Edited for yosi RENO. ROWDY notes whether there has been none or any medical/functional change since admission: - No change since preadmission screen. ROWDY attests patient continues to be appropriate for IRF: - Continues to be appropriate. HISTORY AND PHYSICAL [id number] JAMIE BRYANT,DELANO AMARO MD at 0854 CC: [id number] DICTATION DATE: 11/09/19 0751 SECOND LANGUAGE TUTOR: 11/09/19 1116 ADM IN [place] [id number] [place] [address]
--- NOTE | 2019-11-14 12:06 | NUR ---
RESTING IN BED VISITING WITH FAMILY, DENIES ANY NEEDS AT THIS TIME, C/L AND FLUIDS IN REACH.
--- NOTE | 2019-11-14 14:11 | NUR ---
NUTRITION FOLLOW UP: INTERVIEW: Met with patient and family member. Patient stated her appetite has improved. She denied nausea, vomiting, diarrhea, and chewing/swallowing issues. She stated she has been having some issues with constipation. She stated that she does not enjoy the taste of Ensure. DIET: Regular Diet SUPPLEMENT: None at this time PO INTAKE: 62% avg x 9 meals WEIGHT: 160 lbs on 11/08 BM: x 1 on 11/09 SIG MEDS: Zofran, Protonix, Colace SIG LABS: 11/12- BUN: 23(H), Creatinine: 1.4(H), CRP: 16.8(H) GOALS: PO intake >/= 65% avg for meals, Wound Healing, Stable dry weight DHS RD to continue to monitor and follow patient DHS
--- NOTE | 2019-11-14 16:07 | NUR ---
RESTING IN BED WATCHING TV, DENIES ANY NEEDS AT THIS TIME, C/L AND FLUIDS IN REACH.
--- NOTE | 2019-11-14 18:47 | NUR ---
RECEIVED PT LYING IN BED AWAKE. VISITING WITH DAUGHTER. ALERT AND ORIENTED X4. LEFT HIP WOUND VAC DRESSING INTACT NO LEAKS DETECTED. NO SIGNS OF ACUTE DISTRESS NOTED. DENIES ANY NEEDS OR PAIN. CALL LIGHT AND WATER WITHIN REACH. FALL PRECAUTIONS IN PLACE. CPOC
[2019-11-14 21:50] VITALS: BP 125/60
--- NOTE | 2019-11-15 00:48 | NUR ---
PT LYING IN BED SUPINE EYES CLOSED RESTING QUIETLY. SCD ON. RR EVEN AND UNLABORED. CALL LIGHT AND WATER WITHIN REACH. FALL PRECAUTIONS IN PLACE. CPOC
--- NOTE | 2019-11-15 03:20 | NUR ---
PT UP TO RESTROOM WITH ASSIST. DENIES ANY NEEDS OR PAIN. NO SIGNS OF ACUTE DISTRESS NOTED. FALL PRECAUTIONS IN PLACE. WILL CONTINUE TO MONITOR
--- NOTE | 2019-11-15 08:00 | NUR ---
SHIFT ASSMT COMPLETED.
[2019-11-15] MEDS ORDERED: ROBAXIN PO (08:14)
[2019-11-15] MEDS ORDERED: PERCOCET 10-321 EAC1 PO (08:14)
[2019-11-15 08:20] VITALS: BP 129/83
[2019-11-15] MEDS ORDERED: BAYER CHEWABLE81 MG PO (11:31)
--- NOTE | 2019-11-15 13:30 | NUR ---
REVIEWED DC INSTRUCTIONS;RX AND APPTS GIVEN.DC'D STABLE CONDITION.
--- NOTE | 2019-11-15 14:06 | NUR ---
Teaching provided for pt and daughter upon d/c in reference to prevena vac. Instructed on how to turn on/off. How to trouble shoot alarms. Battery use and emr trainer (battery life is 7 days but pump also comes with emr trainer). Dressing will stay in place for at least 7 days and will be removed either by nurse or Dr. Doll during f/u visit. Both voiced understanding.
--- NOTE | 2019-11-15 14:56 | NUR ---
PATIENT DISCHARGED HOME WITH FAMILY. [facility] WILL PROVIDE THEREAPY AT HOME. NO NEW DME NEEDED AT THIS TIME. HUSSEIN SIGNED, IMM SERVED AND EXPLAINED, ONE GIVEN TO PATIENT AND ONE FILED IN CHART. DR. PITTMAN OFFICE WILL CALL PATIENT WITH AN APPOINTMENT, DR. RIVERA 11/21/19 @ 10:30.DISCHARGE INSTRUCTIONS FAXED TO PCP, HOME HEALTH AND REVIEWED WITH PATIENT AND DAUGHTER.
== END 2019-11-15 13:45 | disposition home health service (06) | DRG 560 ==
LOC: D.REHAB 18:45
PROVIDERS: ADMIT Emergency Medicine; ATTEND Emergency Medicine
DX: Z47.1 Aftercare following joint replacement surgery (principal); D62 Acute posthemorrhagic anemia; M17.12 Unilateral primary osteoarthritis, left knee; R53.1 Weakness; E03.9 Hypothyroidism, unspecified; F41.9 Anxiety disorder, unspecified; M48.00 Spinal stenosis, site unspecified; M62.81 Muscle weakness (generalized); Z96.642 Presence of left artificial hip joint; M16.12 Unilateral primary osteoarthritis, left hip; I12.9 Hypertensive chronic kidney disease with stage 1 through stage 4 chronic kidney disease, or unspecified chronic kidney disease; N18.9 Chronic kidney disease, unspecified; K21.9 Gastro-esophageal reflux disease without esophagitis; E78.5 Hyperlipidemia, unspecified

== ENCOUNTER → 2019-12-13 14:23 | Outpatient (CLI) | payer MEDICARE, OTHER ==
[2019-11-09 14:18] VITALS: BMI 30.2
[~2019-12-13 14:23] MED LIST changes: +BAYER CHEWABLE81 MG PO; +ROBAXIN PO
== END | disposition home or self-care (01) ==
LOC: D.MRI 14:00
PROVIDERS: ATTEND Clinical Nurse Specialist Family Health
DX: M54.16 Radiculopathy, lumbar region (principal)

== ENCOUNTER 2019-12-25 10:20 | Day surgery (SDC) | payer MEDICARE, OTHER ==
[~2019-12-25] VITALS: Ht 154.9 cm; Wt 69.9 kg
[2019-12-25 11:08] LABS: BASOPHILS 0.3 % (0-2); EOSINOPHILS 1.5 % (0-7); HEMATOCRIT 33.7 % (36.0-48.0); HEMOGLOBIN 10.9 g/dL (12-16); IMMATURE GRANULOCYTES 0.3 % (0-5); LYMPHOCYTES 25.1 % (15-50); MCH 29.6 pg (26.0-34.0); MCHC 32.3 g/dL (31.0-37.0); MCV 91.6 fL (80.0-100.0); MEAN PLATELET VOLUME 8.9 fL (7.4-10.4); MONOCYTES 6.3 % (2-11); NEUTROPHILS 66.5 % (40-80); RBC 3.68 10x6/uL (4.00-5.40); RDW 14.6 % (11.5-14.5); WBC 7.9 10x3/uL (4.8-10.8)
[2019-12-25 11:11] LABS: PLATELET COUNT 374 10x3/uL (130-400)
[2019-12-25] MEDS ORDERED: GABAPENTIN300 MG PO (11:30)
[2019-12-25 11:32] LABS: ANION GAP 11.1 mmol/L (8-16); CALCIUM 9.3 mg/dL (8.5-10.1); CARBON DIOXIDE 26.9 mmol/L (21.0-32.0); CREATININE - SERUM 1.4 mg/dL (0.6-1.3)
[2019-12-25 11:32] LABS: APTT 24.7 SECONDS (22.8-39.4); INR 0.87 (0.85-1.17); PROTIME 11.8 SECONDS (11.6-15.0)
[2019-12-25 11:34] VITALS: BP 127/78; Ht 154.9 cm; Wt 69.9 kg
--- NOTE | 2020-01-01 09:14 | OP ---
PATIENT NAME: JAMIE BRYANT MEDICAL RECORD: [id number] :42 LOCATION:[facility] ADMISSION DATE: SURGEON: MESHA RIVERA MD DATE OF OPERATION: 12/25/2019 PREOPERATIVE DIAGNOSIS: Left hip pain status post total hip arthroplasty. POSTOPERATIVE DIAGNOSIS: Left hip pain status post total hip arthroplasty. PROCEDURE: Left hip iliopectineal bursa injection under general anesthesia. SURGEON: Mesha Rivera MD ANESTHESIA: General. INTRAOPERATIVE COMPLICATIONS: None. SUMMARY OF PATHOLOGIC FINDINGS: Essentially none. OPERATIVE SUMMARY IN DETAIL: After obtaining the appropriate preoperative orthopedic surgery consent as well as anesthetic consultation, evaluation, and clearance, the patient was brought to the operating room and placed on the operating table in the supine position. After adequate general endotracheal anesthesia was administered, the patient's left hip was prepped and draped in a routine sterile fashion. Fluoroscopy was brought in and positioned directly over the hip and was located. The 18-gauge spinal needle was then directed directly into the iliopectineal bursa area along the iliopsoas tendon and a small amount of Isovue was utilized to be sure that the needle was in the appropriate position and then a mixture of 40 mg of Depo-Medrol and 6 mL of 0.25% Marcaine with epinephrine was injected into the hip. Needle tip was withdrawn and was intact without blood. Bandage was applied. The patient was awakened and taken to the recovery room in stable condition. All final needle and sponge counts were correct. NTS:[id number] Voice Confirmation ID: [id number] DOCUMENT ID: [id number] MESHA RIVERA MD at 0914 CC: [id number] DICTATION DATE: 12/28/19 0947 AUDITOR SUPERVISOR: 12/28/19 2100 [place] [facility] [place]25[place]19 [place] [id number] [place] [id number]
== END 2019-12-25 13:25 | disposition home or self-care (01) ==
LOC: D.OPS 10:20
PROVIDERS: Anesthesiology; ATTEND Orthopaedic Surgery
DX: Z96.642 Presence of left artificial hip joint (principal); M25.552 Pain in left hip

== ENCOUNTER 2020-01-02 05:53 | Inpatient (IN) | payer MEDICARE, OTHER ==
[~2020-01-02] VITALS: Ht 154.9 cm; Wt 72.7 kg
--- NOTE | ~2020-01-02 | HEMODYNAMI ---
PATIENT:JAMIE BRYANT MEDICAL RECORD: [id number] : 44 LOCATION:[place] [address] ADMISSION DATE: 01/02/20 Generatedon:01/02/202016:11 Patient name: JAMIE BRYANT Patient #: [id number] SSN: : 1940 Date of study: 01/02/2020 Page: Of Hemodynamic Procedure Report Patient Data Patient Demographics First Name: JAMIE Gender: Female Last Name: ANNETTE : 1940 Patient #: [id number] Age: 79 year(s) Race: Unknown Additional ID: [id number] Contact details Address: [address] [place] [address] RO[address] State: [place] City: [place] Zip code: [address] Past Medical History Allergies Allergen Reaction Date Comments Reported Codeine 01/02/2020 Admission Admission Data Admission Date: 01/02/2020 Admission Time: 5:58 Room #: 1204 Height (in.): 61 BSA: 1.72 (m2) Height (cm.): 154.94 BMI: 30.23 (kg/m2) Weight (lbs.): 160 Weight (kg.): 72.57 Procedure Procedure Types Cath Procedure Peripheral Cath Diagnostic Procedure Parts Processor Peripheral Procedures Procedure Description Procedure Date Procedure Date: 01/02/2020 Procedure Start Time: 15:54 Procedure Staff Name Function Litzy Oh RT Survey Research Analyst Carlos Gonzalez MD Performing Physician Hemodynamics Rest BSA: 1.72 (m2) O2 Consumption: Estimated: 233.92 (ml/min) O2 Consumption indexed : Estimated:136 (ml/min/m) Pre Cath Intra NCS Post Cath Procedure Log Time Note 15:34:33 Patient Height : 61 inches 15:34:39 Patient Weight : 160 lbs 15:35:04 Time tracking: Regular hours (M-F 7:00 - 5:00) 15:35:30 Patient allergic to Codeine 15:35:33 Is patient on blood thinner?No 15:35:54 Left Hip was prepped with betadine and draped in sterile fashion. 15:36:04 SAFE-T PLUS MYELOGRAM TRAY opened to sterile field. 15:53:14 Physician responded to page. 15:53:15 Physician arrived 15:53:16 --------ALL STOP TIME OUT------ 15:54:08 Procedure started. 15:54:09 Full Disclosure recording started 16:05:05 hip aspirated. 16:05:09 Procedure ended.(Physican Out) 16:05:27 Report given to Other. 16:05:59 Full Disclosure recording stopped Device Usage Item Name Manufacture Quantity Catalog Hospital Part Current Minimal Lot# / Number Charge Number Stock Stock Serial# Code SAFE-T CareFusion 1 [id number] PLUS MYELOGRAM TRAY Signature Audit [place] Stage Time Signature Unsigned Intra-Procedure 01/02/2020 Litzy Oh RT(R) 4:05:53 PM RT(R) 01/02/2020 4:10:42 PM Intra-Procedure 01/02/2020 Litzy Oh 4:11:33 PM RT(R) [facility] [address] [place] [address]
[~2020-01-02 05:53] MED LIST changes: +GABAPENTIN300 MG PO
[2020-01-02] MEDS ORDERED: SENNA LAXATIVE8.6 MG PO (06:40)
[2020-01-02 06:43] VITALS: BP 150/65; Ht 154.9 cm; Wt 72.7 kg
[2020-01-02] MEDS ORDERED: ZYLOPRIM100 MG PO (06:43)
--- NOTE | 2020-01-02 08:00 | NUR ---
UPDATE GIVEN ON PT . FRIEND ANILA IN ROOM. IV THERAPY STARTED WITH 20 G IN LEFT FOREARM. CL IN REACH. WCTM
[2020-01-02 08:21] VITALS: BP 190/71
[2020-01-02 08:38] LABS: BASOPHILS 0.1 % (0-2); EOSINOPHILS 3.3 % (0-7); HEMATOCRIT 32.8 % (36.0-48.0); HEMOGLOBIN 10.7 g/dL (12-16); IMMATURE GRANULOCYTES 0.7 % (0-5); LYMPHOCYTES 36.1 % (15-50); MCH 29.5 pg (26.0-34.0); MCHC 32.6 g/dL (31.0-37.0); MCV 90.4 fL (80.0-100.0); MEAN PLATELET VOLUME 8.9 fL (7.4-10.4); MONOCYTES 6.7 % (2-11); NEUTROPHILS 53.1 % (40-80); PLATELET COUNT 318 10x3/uL (130-400); RBC 3.63 10x6/uL (4.00-5.40); RDW 14.4 % (11.5-14.5); WBC 7.6 10x3/uL (4.8-10.8)
[2020-01-02 09:39] LABS: ERYTHROCYTE SEDIMENTATION RATE 33 mm/hr (0-30)
[2020-01-02 11:21] VITALS: BP 103/55
--- NOTE | 2020-01-02 12:44 | NUR ---
PT SITTING ON SIDE OF BED EATING. NO NEEDS AT THIS TIME. CL IN REACH. WCTM
[2020-01-02 16:32] VITALS: BP 145/69
[2020-01-02 19:46] VITALS: BP 136/49
--- NOTE | 2020-01-02 20:00 | NUR ---
ALERT RESTING IN BED, REPORTS SOME PAIN TO LEFT HIP, DENIES NEEDS AT THIS TIME, SEE SHIFT ASSESSMENT, CALL LIGHT IN REACH
[2020-01-03 05:00] VITALS: BP 160/79
[2020-01-03 10:55] VITALS: BP 133/63
[2020-01-03] MEDS ORDERED: HYDROCODON-ACE1 EA10 PO (13:24)
--- NOTE | 2020-01-03 14:23 | NUR ---
PATIENT IN ROOM AWAITING DISCHARGE PAPERWORK TO BE DONE. DENIES NEEDS OR PAIN. BED LOW POSITION, CALL LIGHT IN REACH, WILL CONTINUE TO MONITOR.
--- NOTE | 2020-01-03 15:48 | NUR ---
PATIENT DISCHARGE PAPERS COMPLETE. NO FURTHER QUESTIONS. IV CATH REMOVED. CATH TIP INTACT. PATIENT LEFT UNIT VIA WHEELCHAIR TO HOME.
== END 2020-01-03 15:49 | disposition home or self-care (01) | DRG 556 ==
LOC: D.NM 05:53 → D.M3 05:58 → D.NM 07:00 → D.M3 01-03 15:49
PROVIDERS: Radiology Vascular & Interventional Radiology; ADMIT Orthopaedic Surgery; ATTEND Orthopaedic Surgery
PROC: 0S9B3ZZ Drainage of Left Hip Joint, Percutaneous Approach (ICD-10-PCS; principal; 2020-01-02 15:56)
DX: M25.552 Pain in left hip (principal); I12.9 Hypertensive chronic kidney disease with stage 1 through stage 4 chronic kidney disease, or unspecified chronic kidney disease; N18.9 Chronic kidney disease, unspecified; M51.16 Intervertebral disc disorders with radiculopathy, lumbar region

== ENCOUNTER → 2020-07-18 10:52 | Outpatient (CLI) | payer MEDICARE, OTHER ==
[2020-01-02 06:43] VITALS: BMI 30.3
[~2020-07-18 10:52] MED LIST changes: +HYDROCODON-ACE1 EA10 PO; +SENNA LAXATIVE8.6 MG PO; +ZYLOPRIM100 MG PO
== END | disposition home or self-care (01) ==
LOC: D.US 10:52
PROVIDERS: ATTEND Clinical Nurse Specialist Family Health
DX: M79.604 Pain in right leg (principal)

== ENCOUNTER → 2020-07-30 13:06 | Day surgery (SDC) | payer MEDICARE, OTHER ==
[2020-01-02 06:43] VITALS: BMI 30.3
--- NOTE | ~2020-07-30 | HEMODYNAMI ---
PATIENT:IRASEMA BRYANT MEDICAL RECORD: [id number] : 44 LOCATION:[facility] ADMISSION DATE: 07/30/20 Generatedon:114:44 Patient name: IRASEMA BRYANT Patient #: [id number] SSN: : 1940 Date of study: 07/30/2020 Page: Of Hemodynamic Procedure Report Patient Data Patient Demographics Procedure consent was obtained First Name: IRASEMA Gender: Female Last Name: ANNETTE : 1940 Patient #: [id number] Age: 80 year(s) Race: Unknown Additional ID: [id number] Contact details Address: [address] [place] [address] [address] State: [place] City: [place] Zip code: [address] Past Medical History Allergies Allergen Reaction Date Comments Reported Codeine 01/02/2020 Codeine 07/30/2020 Admission Admission Data Admission Date: 07/30/2020 Admission Time: 13:06 Procedure Procedure Types Cath Procedure Peripheral Cath Diagnostic Procedure Miscellaneous Aspiration/Injection (Joint) Procedure Description Procedure Date Procedure Date: 07/30/2020 Procedure Start Time: 14:33 Procedure Staff Name Function Nestor Grant MD Performing Physician Litzy Oh RT Dumb Waiter Operator Jeffery Barakat RT Scrub Procedure Data Cath Procedure Fluoroscopy Diagnostic fluoroscopy Total fluoroscopy Time: 0.4 time: 0.4 min min Diagnostic fluoroscopy Total fluoroscopy dose: 5 dose: 5 mGy mGy Hemodynamics Rest Pre Cath Intra NCS Post Cath Procedure Log Time Note 13:20:24 SAFE-T PLUS MYELOGRAM TRAY opened to sterile field. 14:09:53 Time tracking: Regular hours (M-F 7:00 - 5:00) 14:10:05 Signed procedure consent form obtained from patient. 14:10:18 Patient allergic to Codeine 14:10:23 - 14:10:34 Left Hip was prepped with betadine and draped in sterile fashion. 14:32:42 Physician arrived 14:32:43 --------ALL STOP TIME OUT------ 14:32:43 Final Timeout: patient, procedure, and site verified with staff and physician. All members of the team are in agreement. 14:32:46 Left groin site verified by team. 14:32:51 Sedation plan: Local Anesthetic Medication:Lidocaine 14:33:13 Procedure started. 14:33:14 Full Disclosure recording started 14:33:22 Local anesthetic to Left Hip with Lidocaine 1% by Nestor Grant MD.INITIAL ACCESS ONLY 14:43:22 Procedure ended.(Physican Out) 14:43:47 Fluoroscopy time 00.40 minutes. 14:43:52 Fluoroscopy dose: 5 mGy 14:43:52 Flurop Dose total: 5 14:44:14 BANDAIDE APPLIED SITE STABLE PT SENT HOME Device Usage Item Name Manufacture Quantity Catalog Hospital Part Current Minimal Lot# / Number Charge Number Stock Stock Serial# Code SAFE-T CareFusion 1 [id number] PLUS MYELOGRAM TRAY Signature Audit [place] Stage Time Signature Unsigned Intra-Procedure 07/30/2020 Jeffery 2:44:35 PM Yuval RT (R) (CV) [facility] [address] [place] [address]
[~2020-07-30 13:06] MED LIST changes: +CLONIDINE HCL0.1 MG PO; +FOLIC ACID1 MG; +LISINOPRIL10 MG; +MIRALAX17 GM; +ZOVIRAX200 MG
== END | disposition home or self-care (01) ==
LOC: D.RAD 07-22 13:30 → D.SP 07-22 13:30 → EDSTATUS 07-22 13:30 → D.SP 13:06
PROVIDERS: ATTEND Clinical Nurse Specialist Family Health
DX: M70.72 Other bursitis of hip, left hip (principal)

== ENCOUNTER 2020-07-31 10:17 | Emergency (ER) | payer MEDICARE, OTHER ==
[~2020-07-31] VITALS: Ht 154.9 cm; Wt 70.0 kg
[~2020-07-31 10:17] MED LIST changes: -CLONIDINE HCL0.1 MG PO; -FOLIC ACID1 MG; -LISINOPRIL10 MG; -MIRALAX17 GM; -ZOVIRAX200 MG
[2020-07-31 10:24] VITALS: BP 152/71; Ht 154.9 cm; Wt 70.0 kg
[2020-07-31] MEDS ORDERED: LISINOPRIL10 MG (10:28)
[2020-07-31] MEDS ORDERED: FOLIC ACID1 MG (10:28)
[2020-07-31] MEDS ORDERED: MIRALAX17 GM (10:28)
[2020-07-31] MEDS ORDERED: ZOVIRAX200 MG (10:29)
[2020-07-31] MEDS ORDERED: CLONIDINE HCL0.1 MG PO (10:56)
== END 2020-07-31 11:03 | disposition home or self-care (01) ==
LOC: D.ER 10:17
DX: I10 Essential (primary) hypertension (principal); K21.9 Gastro-esophageal reflux disease without esophagitis

== ENCOUNTER 2020-07-31 11:41 | Emergency (ER) | payer MEDICARE, OTHER ==
[~2020-07-31] VITALS: Ht 154.9 cm; Wt 70.0 kg
[~2020-07-31 11:41] MED LIST changes: +CLONIDINE HCL0.1 MG PO; +FOLIC ACID1 MG; +LISINOPRIL10 MG; +MIRALAX17 GM; +ZOVIRAX200 MG
[2020-07-31 11:52] VITALS: Ht 154.9 cm; Wt 70.0 kg
[2020-07-31 12:16] LABS: APTT 26.3 SECONDS (22.8-39.4); INR 1.07 (0.85-1.17); PROTIME 12.9 SECONDS (11.6-15.0)
[2020-07-31 12:18] LABS: CALC OSMOLALITY 277 mosm/kg (275-300); CALCIUM 9.4 mg/dL (8.5-10.1); CARBON DIOXIDE 23.5 mmol/L (21.0-32.0); CHLORIDE - SERUM 98 mmol/L (98-107); CREATININE - SERUM 1.5 mg/dL (0.6-1.3); GLUCOSE 114 mg/dL (74-106); POTASSIUM - SERUM 4.8 mmol/L (3.5-5.1); SODIUM 135 mmol/L (136-145); UREA NITROGEN 32 mg/dL (7-18); eGFR NON AFRICAN AMERICAN 35 mL/min (90-120)
[2020-07-31 12:21] LABS: BASOPHILS 0.1 % (0-2); EOSINOPHILS 0.6 % (0-7); HEMATOCRIT 33.6 % (36.0-48.0); HEMOGLOBIN 10.9 g/dL (12-16); IMMATURE GRANULOCYTES 0.1 % (0-5); LYMPHOCYTE ABS# 1.93 10x3/uL (1.18-3.74); LYMPHOCYTES 23.3 % (15-50); MCH 29.9 pg (26.0-34.0); MCHC 32.4 g/dL (31.0-37.0); MCV 92.1 fL (80.0-100.0); MEAN PLATELET VOLUME 9.4 fL (7.4-10.4); MONOCYTES 5.9 % (2-11); NEUTROPHIL ABS# 5.81 10x3/uL (1.56-6.13); PLATELET COUNT 295 10x3/uL (130-400); RBC 3.65 10x6/uL (4.00-5.40); RDW 14.6 % (11.5-14.5); WBC 8.3 10x3/uL (4.8-10.8)
[2020-07-31 12:46] LABS: ALBUMIN 4.3 g/dL (3.4-5.0); ALKALINE PHOSPHATASE 125 U/L (30-120); ALT (SGPT) 25 U/L (10-68); BILIRUBIN - TOTAL 0.32 mg/dL (0.2-1.3); CKMB 1.4 U/L (0.0-3.6); CREATINE KINASE 187 UL (21-215); MAGNESIUM - SERUM 2.2 mg/dL (1.8-2.4); PROTEIN - SERUM 7.3 g/dL (6.4-8.2); TROPONIN-I < 0.017 ng/mL (0.000-0.060)
[2020-07-31 14:02] VITALS: BP 174/81
== END 2020-07-31 14:07 | disposition home or self-care (01) ==
LOC: D.ER 11:41
PROVIDERS: Family Medicine
DX: I10 Essential (primary) hypertension (principal); F41.9 Anxiety disorder, unspecified; K21.9 Gastro-esophageal reflux disease without esophagitis

== ENCOUNTER → 2020-08-12 09:33 | Outpatient (CLI) | payer MEDICARE, OTHER ==
[2020-07-31 11:52] VITALS: BMI 29.1
== END | disposition home or self-care (01) ==
LOC: D.ECHO 09:33
PROVIDERS: ATTEND Internal Medicine Cardiovascular Disease
DX: I70.1 Atherosclerosis of renal artery (principal)